=== PATIENT | female | born 1995 | race Caucasian/White ===

== ENCOUNTER 2025-06-13 10:36 | Outpatient (CLI) | payer OTHER, SELFPAY ==
[2025-06-13 14:44] LABS: Hepatitis C Ab Qual. W/ RFX NEGATIVE (Negative)
[2025-06-14 09:27] LABS: Hepatitis B Surface Antigen Negative (Negative)
[2025-06-14 11:06] LABS: RPR W/RFX Titers Nonreactive (Nonreactive)
== END 2025-06-13 23:59 | disposition home or self-care (01) ==
LOC: LAB 10:37
PROVIDERS: Visit Provider Obstetrics & Gynecology
DX: Z01.419 Encounter for gynecological examination (general) (routine) without abnormal findings (principal); N92.6 Irregular menstruation, unspecified
CPT/HCPCS: 36415; 86592; 86696; 86803; 87389